=== PATIENT | female | born 1980 | race Two or more races ===

== ENCOUNTER 2019-09-18 14:25 | Emergency (ER) | payer OTHER ==
[~2019-09-18] VITALS: Ht 149.9 cm; Wt 77.1 kg
[2019-09-18] MEDS ORDERED: LEVOTHYROXINE SODIUM PO (14:59)
[2019-09-18] MEDS ORDERED: BACTRIM DS TAB1 EACH PO (16:14)
[2019-09-18] MEDS ORDERED: DICLOFENAC SODI75 MG PO (16:14)
== END 2019-09-18 17:07 | disposition home or self-care (01) ==
LOC: ER 14:25
DX: S90.862A Insect bite (nonvenomous), left foot, initial encounter (principal); L03.818 Cellulitis of other sites; R53.81 Other malaise; R20.0 Anesthesia of skin; W57.XXXA Bitten or stung by nonvenomous insect and other nonvenomous arthropods, initial encounter; Y93.89 Activity, other specified; Y92.89 Other specified places as the place of occurrence of the external cause; Y99.8 Other external cause status